=== PATIENT | male | born 1965 | race Caucasian/White ===

== ENCOUNTER 2016-12-07 02:52 | Emergency (ER) | payer BC ==
[~2016-12-07] VITALS: Ht 177.8 cm; Wt 89.8 kg
[2016-12-07] MEDS ORDERED: diphenhydrAMINE HCL 50 MG/ML VIAL ONE (03:13)
[2016-12-07] MEDS ORDERED: IV NS 0.9% 1,000 ML ONE (03:14)
[2016-12-07] MEDS ORDERED: IV SET PRIMARY 1 EA INFUS.SET MC ONE ×2 (03:14→03:15)
[2016-12-07] MEDS ORDERED: EPINEPHRINE (1:1000) MDV 30 MG/30ML VIAL ONE (03:14)
[2016-12-07] MEDS ORDERED: PIPERACILLIN /TAZOBACTAM 3.375 G VIAL IV ONE (03:14)
[2016-12-07] MEDS ORDERED: methylPREDNISolone SOD SUCC 125 MG/2ML VIAL ONE (03:14)
[2016-12-07] MEDS ORDERED: IV D5W 50 ML IV ONE (03:14)
[2016-12-07] MEDS ORDERED: EPINEPHRINE (1:1000) 1 MG/ML AMPUL ONE (03:15)
--- NOTE | 2016-12-07 03:20 | NUR ---
NO BLOOD CULTURES ORDERED. DR. BRAND IS AWARE. OK TO GIVE ANTIBIOTICS WITHOUT BLOOD CULTURES
[2016-12-07 03:27] LABS: BASOPHILS % (AUTO) 0.3 % (0.0-2.0); EOSINOPHILS # (AUTO) 0.2 /CMM (0.0-0.7); EOSINOPHILS % (AUTO) 1.7 % (0.0-6.0); HEMATOCRIT 47 % (39-51); HEMOGLOBIN 15.8 g/dL (13.5-17.5); LYMPHOCYTES # (AUTO) 1.5 /CMM (0.8-4.8); LYMPHOCYTES % (AUTO) 10.4 % (20.0-44.0); MEAN CORPUSCULAR HEMOGLOBIN 28 PG (26.0-33.0); MEAN CORPUSCULAR HGB CONC 33 g/dl (31.0-36.0); MEAN CORPUSCULAR VOLUME 84 fL (80-96); MONOCYTES # (AUTO) 0.6 /CMM (0.1-1.30); MONOCYTES % (AUTO) 4.5 % (2.0-12.0); NEUTROPHILS % (AUTO) 83.1 % (43.0-81.0); PLATELET COUNT (AUTO) 300 /CMM (150-450); RDW COEFFICIENT OF VARIATION 15.1 (11.5-15.0); RED BLOOD CELL COUNT(AUTO) 5.65 MIL/uL (4.5-6.0); WHITE BLOOD COUNT (AUTO) 14.4 K/uL (4.3-11.0)
[2016-12-07] MEDS ORDERED: PIPERACILLIN /TAZOBACTAM 3.375 G in IV D5W 50 ML IV ONE (03:30)
[2016-12-07] MEDS ORDERED: EPINEPHRINE (1:1000) MDV 30 MG/30ML VIAL SUBCUT ONE (03:30)
[2016-12-07] MEDS ORDERED: IV NS 0.9% 1,000 ML BAG IV ONE (03:30)
[2016-12-07] MEDS ORDERED: diphenhydrAMINE HCL 50 MG/ML VIAL IV ONE (03:30)
[2016-12-07] MEDS ORDERED: methylPREDNISolone SOD SUCC 125 MG/2ML VIAL IV ONE (03:30)
[2016-12-07 03:40] LABS: POTASSIUM 3.4 mmol/L (3.5-5.1)
[2016-12-07 03:45] LABS: ALBUMIN 3.7 g/dL (3.4-5.0); BILIRUBIN,DIRECT 0.1 mg/dL (0.0-0.2); BILIRUBIN,TOTAL 0.6 mg/dL (0.2-1.0); INR 1.04 (0.87-1.13); PROTHROMBIN TIME 11.2 SECS (9.5-12.7); TOTAL PROTEIN, SERUM 8.3 g/dL (6.4-8.2)
--- NOTE | 2016-12-07 03:45 | NUR ---
PT WALKED IN C/O TONGUE SWELLING OF UNKNOWN ORIGIN. PT IS ON JEAN INHIBITORS AND HASNT TAKEN IT FOR A DAY AND A HALF. TREATING PT FOR ANAPHYLAXIS. DR BRAND AT BEDSIDE.
--- NOTE | 2016-12-07 03:45 | NUR ---
PT ABLE TO SPEAK IN COMPLETE SENTENCES. PT NOT C/O ANY SOB OR DIFFICULTY BREATHING.
--- NOTE | 2016-12-07 04:15 | NUR ---
PT STATES " MY TONGUE FEELS BETTER" AND PT IS TALKING MORE CLEAR. VITAL SIGNS ARE STABLE WITH BP 139/77 HR 98 O2 SAT @ 97%.
[2016-12-07] MEDS ORDERED: FAMOTIDINE/PF INJ 20 MG/2 ML VIAL IV ONE ×2 (04:47→05:00)
--- NOTE | 2016-12-07 05:54 | NUR ---
DR. HUTCHINS PAGEKoko
[2016-12-07] MEDS ORDERED: IV NS 0.9% 1,000 ML IV PRN (06:07)
--- NOTE | 2016-12-07 06:13 | NUR ---
REPORT GIVEN TO TAMI/RN HE ON BEHALF OF PRIMARY NURSE RAMILA/ROYER
[2016-12-07] MEDS ORDERED: ASPI81TA2 PO (06:22)
[2016-12-07] MEDS ORDERED: METF10002 PO (06:22)
[2016-12-07] MEDS ORDERED: QUIN40TA27 PO (06:22)
[2016-12-07] MEDS ORDERED: ATOR20TA PO (06:22)
[2016-12-07] MEDS ORDERED: ALLO300T2 PO (06:22)
[2016-12-07] MEDS ORDERED: VICTOZA PO (06:22)
[2016-12-07] MEDS ORDERED: POTA15TA6 PO (06:22)
[2016-12-07] MEDS ORDERED: MULT-1119 PO (06:22)
[2016-12-07] MEDS ORDERED: DAPA10TA PO (06:22)
[2016-12-07] MEDS ORDERED: ASCO500T9 PO (06:24)
[2016-12-07] MEDS ORDERED: FLAX100025 PO (06:24)
[2016-12-07] MEDS ORDERED: OMEG500C PO (06:24)
[2016-12-07] MEDS ORDERED: ZINC50TA4 PO (06:24)
[2016-12-07] MEDS ORDERED: [UNRECOGNIZED DRUG - OTHER] PO (06:24)
[2016-12-07] MEDS ORDERED: ALBUTEROL FS 2.5 MG/0.5 ML VIAL.NEB NEB PRN (06:30)
[2016-12-07] MEDS ORDERED: MAGNESIUM HYDROXIDE 30 ML UDC PO PRN (06:30)
[2016-12-07] MEDS ORDERED: ACETAMINOPHEN 325 MG TABLET PO PRN (06:30)
[2016-12-07] MEDS ORDERED: ONDANSETRON HCL/PF 4 MG/2 ML VIAL IVP PRN (06:30)
[2016-12-07] MEDS ORDERED: ZOLPIDEM TARTRATE 5 MG TABLET PO PRN (06:30)
[2016-12-07] MEDS ORDERED: MAG HYDROX/AL HYDROX/SIMETH 30 ML UDC PO PRN (06:30)
[2016-12-07] MEDS ORDERED: HYDROCODONE/APAP 5/325MG 1 EACH TABLET PO PRN (06:30)
[2016-12-07] MEDS ORDERED: IPRATROPIUM NEB FS 0.5 MG/2.5 ML AMPUL.NEB NEB PRN (06:30)
[2016-12-07] MEDS ORDERED: diphenhydrAMINE HCL 25 MG in IV D5W 50 ML IV PRN (06:30)
[2016-12-07] MEDS ORDERED: Z GUARD REMEDY 2 OZ OINT TP PRN (06:30)
[2016-12-07 06:51] VITALS: BP 157/99
--- NOTE | 2016-12-07 07:31 | NUR ---
INITIAL HE RN NOTE RCVD PT AWAKE AND ALERT, SHOWING NO S/O DISTRESS OR C/O PAIN. ST ON TELE HR 118. ON RA TOLERATING WELL. PT AMBULATORY WITH STEADY GAIT. NPO AT THIS TIME. LEFT AC #18 C/D/I/PATENT. NO C/O INFILTRATION OR PHLEBITIS OBSERVED UPON FLUSHING. WILL CONTINUE TO MONITOR PT FOR SAFETY AND COMFORT. CALL LIGHT WITHIN REACH. BED IN LOW AND LOCKED POSITION. Addendum: 12/07/16 at 1152 by SAHARA HAHN RN PT'S TONGUE APPEARS SWOLLEN BUT PT STATES THAT ITS IMPROVED A LOT. PT ABLE TO SPEAK CLEARLY, SWALLOW TOLERATING ICE CHIPS WITHOUT COUGHING.
[2016-12-07 08:00] VITALS: BP 162/92
[2016-12-07] MEDS ORDERED: DILT240C2 PO (08:08)
[2016-12-07] MEDS ORDERED: LIRA0.6P SQ (08:08)
[2016-12-07] MEDS ORDERED: CINN500C14 PO (08:08)
[2016-12-07] MEDS ORDERED: methylPREDNISolone SOD SUCC 125 MG/2ML VIAL IV SCH (09:00)
[2016-12-07] MEDS ORDERED: PANTOPRAZOLE 40 MG VIAL IV SCH (09:00)
[2016-12-07] MEDS ORDERED: IV SET PRIMARY PUMP SET 1 EA INFUS.SET MC ONE (09:15)
--- NOTE | 2016-12-07 09:15 | NUR ---
HE RN NOTE DARLENE CHAPMAN CONTACTED PT'S BP 162/92 NO BP MEDS ON BOARD. NO NEW ORDERS RCVD. WILL CONTINUE TO MONITOR PT.
[2016-12-07] MEDS ORDERED: diphenhydrAMINE HCL 50 MG/ML VIAL IV PRN (09:30)
[2016-12-07 12:00] VITALS: BP 147/86
[2016-12-07] MEDS ORDERED: POTASSIUM CHLORIDE 20 MEQ TAB.PRT.SR PO SCH (12:00)
--- NOTE | 2016-12-07 12:30 | NUR ---
FINAL HE RN NOTE PT DISCHARGED HOME IN STABLE CONDITION, AMBULATORY WITH STEADY GAIT. IV SITE DISCONTINUED CATH TIP INTACT. NO BLEEDING OBSERVED. TELE MONITOR D/C'd AND TURNED TO THE TEA BLENDER. PT OFFERED POTASSIUM REPLACEMENT AND DECLINED. PT WAS RECOMMENDED TO EAT A BANANA WHEN HE GETS HOME. HE ACKNOWLEDGED AND AGREED. PT WAS ACCOMPANIED TO LOBBY AREA BY RN, PARKING VALIDATION OBTAINED AND HANDED TO PT.
== END 2016-12-07 06:53 | disposition other institution (70) ==
LOC: ER 02:57 → UNDOADMIN 06:38 → TELE-TD 06:38 → UNDODISIN 12:30
DX: T78.3XXA Angioneurotic edema, initial encounter (principal); T46.4X5A Adverse effect of angiotensin-converting-enzyme inhibitors, initial encounter; E11.9 Type 2 diabetes mellitus without complications; I10 Essential (primary) hypertension; E78.5 Hyperlipidemia, unspecified; R00.0 Tachycardia, unspecified; F43.9 Reaction to severe stress, unspecified; D72.829 Elevated white blood cell count, unspecified
CPT/HCPCS: 36415; 80048; 80076; 85025; 85730; 93005; 96361; 96365; 96375; 99285; A4606; C9113; J0171 ×2; J1200; J2543; J2930 ×2; J3490; J7030 ×2; J7060; Z7610

== ENCOUNTER 2017-10-04 11:13 | Emergency (ER) | payer BC ==
[~2017-10-04] VITALS: Ht 175.3 cm; Wt 77.1 kg
[~2017-10-04 11:13] MED LIST: ALLO300T2 PO; ASCO500T9 PO; ASPI-1169 PO; ATOR20TA PO; CINN500C2 PO; DAPA10TA PO; DILT240C2 PO; FLAX100025 PO; LIRA0.6P SQ; METF10002 PO; MULT-1119 PO; OMEG500C PO; POTA15TA6 PO; ZINC50TA4 PO
--- NOTE | 2017-10-04 11:25 | NUR ---
SELF PRESENTS TO ED C/O SEVERE LOWER BACK PAIN X 6 WEEKS, WORSE LAST 3 DAYS. STATING BELIEVES IT MAY BE KIDNEY STONES. PATIENT IS A/OX 4. BREATHING EVEN AND UNLABORED. NO SOB. VITALS STABLE. SAFETY AND COMFORT MEASURES IN PLACE. AWAITING MD ORDERS.
[2017-10-04] MEDS ORDERED: HYDROMORPHONE INJ 2 MG/ML DISP.SYRIN IV ONE (12:00)
[2017-10-04] MEDS ORDERED: ONDANSETRON HCL/PF 4 MG/2 ML VIAL IVP ONE (12:00)
[2017-10-04] MEDS ORDERED: IV NS 0.9% 1,000 ML BAG IV ONE (12:00)
[2017-10-04] MEDS ORDERED: ONDANSETRON HCL/PF 4 MG/2 ML VIAL ONE (12:01)
[2017-10-04] MEDS ORDERED: HYDROMORPHONE INJ 2 MG/ML DISP.SYRIN ONE (12:02)
--- NOTE | 2017-10-04 12:10 | NUR ---
NEW IV STARTED ON RFA, 20 G. BLOOD DRAWN AND SENT TO LAB.
--- NOTE | 2017-10-04 12:15 | NUR ---
PATIENT MEDICATED PER MD ORDERS.
[2017-10-04 12:16] LABS: BASOPHILS # (AUTO) 0.1 /CMM (0.0-0.2); BASOPHILS % (AUTO) 0.9 % (0.0-2.0); EOSINOPHILS # (AUTO) 0.4 /CMM (0.0-0.7); EOSINOPHILS % (AUTO) 2.8 % (0.0-6.0); HEMATOCRIT 26 % (39-51); HEMOGLOBIN 9.9 g/dL (13.5-17.5); LYMPHOCYTES # (AUTO) 0.8 /CMM (0.8-4.8); MEAN CORPUSCULAR HEMOGLOBIN 37 PG (26.0-33.0); MEAN CORPUSCULAR HGB CONC 38 g/dl (31.0-36.0); MEAN CORPUSCULAR VOLUME 98 fL (80-96); MONOCYTES # (AUTO) 1.2 /CMM (0.1-1.30); MONOCYTES % (AUTO) 9.8 % (2.0-12.0); NEUTROPHILS % (AUTO) 80.5 % (43.0-81.0); PLATELET COUNT (AUTO) 260 /CMM (150-450); RDW COEFFICIENT OF VARIATION 17.2 (11.5-15.0); RED BLOOD CELL COUNT(AUTO) 2.67 MIL/uL (4.5-6.0); WHITE BLOOD COUNT (AUTO) 12.5 K/uL (4.3-11.0)
[2017-10-04 12:27] LABS: CALCIUM, SERUM 10.9 mg/dL (8.5-10.1); CARBON DIOXIDE 31 mmol/L (21-32); CHLORIDE 98 mmol/L (98-107); CREATININE 1.4 mg/dL (0.6-1.3); GLUCOSE 182 mg/dL (74-106); SODIUM SERUM 131 mmol/L (136-145); UREA NITROGEN, BLOOD 25 mg/dL (7-18)
[2017-10-04 12:30] LABS: INR 1.32 (0.85-1.15)
--- NOTE | 2017-10-04 12:32 | NUR ---
PATIENT TAKEN TO CT VIA STRETCHER.
[2017-10-04 12:33] LABS: ALANINE AMINOTRANSFERASE 13 U/L (12-78); ALBUMIN 1.8 g/dL (3.4-5.0); ALKALINE PHOSPHATASE 318 U/L (46-116); ASPARTATE AMINOTRANSFERASE 26 U/L (15-37); BILIRUBIN,DIRECT 0.4 mg/dL (0.0-0.2); BILIRUBIN,TOTAL 0.9 mg/dL (0.2-1.0); LIPASE 87 U/L (73-393); TOTAL PROTEIN, SERUM 8.5 g/dL (6.4-8.2)
[2017-10-04 12:34] LABS: TROPONIN I < 0.017 ng/mL (0.00-0.056)
--- NOTE | 2017-10-04 12:51 | NUR ---
PATIENT RETURNED FROM CT IN STABLE CONDITION.
--- NOTE | 2017-10-04 14:05 | NUR ---
Catheter intact and site benign. Pressure and 4x4 applied to site. No bleeding noted. Patient discharged to home in stable condition. Written and verbal after care instructions given. Patient verbalizes understanding of instruction.IV removed.
[2017-10-04 14:40] VITALS: BP 134/71
== END 2017-10-04 14:41 | disposition home or self-care (01) ==
LOC: ER 11:15
DX: N20.0 Calculus of kidney (principal); I10 Essential (primary) hypertension; E78.00 Pure hypercholesterolemia, unspecified; E11.9 Type 2 diabetes mellitus without complications; Z85.01 Personal history of malignant neoplasm of esophagus; Z79.82 Long term (current) use of aspirin; C78.7 Secondary malignant neoplasm of liver and intrahepatic bile duct; Z79.84 Long term (current) use of oral hypoglycemic drugs
CPT/HCPCS: 36415; 71045; 74176; 80048; 80076; 83690; 84484; 85025; 85730; 93005; 96361; 96374; 96375; 99285; A4606; J1170; J2405; J7030; Z7610